=== PATIENT | female | born 1965 | race African-American/Black ===

== ENCOUNTER 2016-07-03 17:14 | Emergency (ER) | payer OTHER ==
--- NOTE | ~2016-07-03 | CR173 ---
[facility] A Service of [facility] & [facility] RADIOLOGY TEXT RESULTS PATIENT: FACUNDO CHU LOCATION: CFTX : 61 UNIT #: [id number] AGE: [address]: Porfirio Shaw SEX: F ORDER DR: [id number] [facility] [address] [place], [place] [address] [id number] E MR#: [id number] #: [id number] NAME: FACUNDO CHU : 1965 SEX: F STUDY DATE/TIME: 07/03/2016 17:40 UNIT: [facility] ROOM: STUDY DESCRIPTION: CR Knee 3 Views Rt Attending Physician: Porfirio Shaw Ordering Physician: Porfirio Shaw Primary Care Physician: Primary Care Physician No MEDICAL IMAGING REPORT This report is preliminary unless electronic signature is present EXAM 3 views right knee 07/03/2016 HISTORY Trauma. Fell directly on the knee. 13:45 p.m. today. TECHNIQUE AP, lateral and sunrise views of the right knee are presented. FINDINGS No fracture. No traumatic malalignment. Mild to moderate narrowing patellofemoral joint space compartment. Scattered articular surface marginal osteophytes. Small joint effusion in the suprapatellar recess. The joint effusion appears relatively dense. Correlate with any clinical concern for small hemarthrosis. There is no fat-fluid level seen to raise suspicion for occult fracture. No soft tissue defect, subcutaneous air or radiodense foreign body. Dictated by... Roman Roldan M.D. THIS IS AN ELECTRONICALLY VERIFIED REPORT Roman Roldan M.D. at 07/09/2016 5:59 PM ARTURO/[place] TD: 07/03/2016 19:59 JOB #: [id number] MEDICAL IMAGING REPORT Page 1 of 1 COPY
== END 2016-07-03 18:55 | disposition home or self-care (01) ==
LOC: CFTX 17:14
DX: S76.111A Strain of right quadriceps muscle, fascia and tendon, initial encounter (principal); S80.01XA Contusion of right knee, initial encounter; I10 Essential (primary) hypertension; F17.210 Nicotine dependence, cigarettes, uncomplicated; W01.0XXA Fall on same level from slipping, tripping and stumbling without subsequent striking against object, initial encounter; Y92.009 Unspecified place in unspecified non-institutional (private) residence as the place of occurrence of the external cause
CPT/HCPCS: 29505; 73562; 99283; J1885